=== PATIENT | male | born 1995 | race Caucasian/White ===

== ENCOUNTER 2022-09-12 06:20 | Day surgery (SDC) | payer BC ==
[~2022-09-12] VITALS: Ht 188 cm; Wt 83.2 kg
[2022-09-12] MEDS ORDERED: NO HOME MEDS (07:28)
[2022-09-12 07:34] VITALS: BP 138/81
[2022-09-12] MEDS ORDERED: LIDOcaine 1% 30ml preserv. free vial SQ STA (07:38)
[2022-09-12 08:41] VITALS: BP 135/73
[2022-09-12 08:45] VITALS: BP 132/82
[2022-09-12 08:50] VITALS: BP 132/77
[2022-09-12 09:00] VITALS: BP 123/72
== END 2022-09-12 09:10 | disposition home or self-care (01) ==
LOC: SSTAY O 06:20
PROVIDERS: ATTEND Radiology Vascular & Interventional Radiology
DX: R59.0 Localized enlarged lymph nodes (principal)
CPT/HCPCS: 10005